=== PATIENT | female | born 1995 | race Two or more races ===

== ENCOUNTER 2023-10-21 10:48 | Emergency (ER) | payer OTHER ==
[~2023-10-21] VITALS: Ht 162.6 cm; Wt 100.0 kg
[2023-10-21 11:31] VITALS: BP 116/79; PULSE 88; RESP 16; TEMP 97.8; O2SAT 98
[2023-10-21] MEDS ORDERED: ERY05OO OP (11:38)
== END 2023-10-21 11:47 | disposition home or self-care (01) ==
LOC: ER 10:48
DX: H10.9 Unspecified conjunctivitis (principal); Z79.899 Other long term (current) drug therapy

== ENCOUNTER 2024-04-04 10:36 | Emergency (ER) | payer MEDICAID, OTHER ==
[~2024-04-04] VITALS: Ht 165.1 cm; Wt 105.2 kg
[~2024-04-04 10:36] MED LIST: ERY05OO OP
[2024-04-04 11:48] VITALS: BP 122/77; PULSE 77; RESP 15; TEMP 98.2; O2SAT 100
[2024-04-04 11:53] LABS: Urine Bacteria FEW /hpf (None Seen); Urine Blood 2+ /uL (Negative); Urine Clarity Clear (Clear); Urine Color Light-Yellow (Yellow); Urine Protein, UAD Negative (Negative); Urine Specific Gravity 1.024 (1.001-1.035); Urine Urobilinogen Normal (Negative); Urine WBC 2 /hpf (0 - 5); Urine pH 5.5 (5.0-9.0)
[2024-04-04] MEDS: KETOROLAC TROMETH 60MG/2ML VIAL IM ONE (11:55)
[2024-04-04] MEDS ORDERED: METH-1182 PO (12:17)
[2024-04-04] MEDS ORDERED: IBUP-1456 PO (12:17)
== END 2024-04-04 12:20 | disposition home or self-care (01) ==
LOC: ER 10:36
DX: M54.42 Lumbago with sciatica, left side (principal); Z79.1 Long term (current) use of non-steroidal anti-inflammatories (NSAID); Z79.899 Other long term (current) drug therapy
CPT/HCPCS: 81001; 96372; 99283; J1885